=== PATIENT | female | born 1960 | race African-American/Black ===

== ENCOUNTER 2021-10-20 17:36 | Emergency (ER) | payer OTHER ==
[~2021-10-20] VITALS: Ht 160 cm; Wt 117.5 kg
[~2021-10-20 17:36] MED LIST: FERRETTS325 MG OR
[2021-10-20 18:12] LABS: PLATELET COUNT 271 K/uL (152-353)
[2021-10-20 18:26] LABS: POTASSIUM 3.7 mmol/L (3.6-5.2); SODIUM 140 mmol/L (136-145)
[2021-10-20 18:32] LABS: PARTIAL THROMBOPLASTIN TIME 24.6 SECONDS (24.5-33.6)
[2021-10-20 19:55] VITALS: BP 155/90; TEMP 97.8
== END 2021-10-20 19:55 | disposition home or self-care (01) ==
LOC: ED 17:36
PROVIDERS: Hospitalist
DX: R42 Dizziness and giddiness (principal); R11.2 Nausea with vomiting, unspecified
CPT/HCPCS: 36415; 80053; 80320; 82550; 83880; 84484; 85027; 85610; 85730; 93005; 96361; 96374; 96375; 99284; J1885; J2405